=== PATIENT | male | born 1980 | race Caucasian/White ===

== ENCOUNTER 2021-04-03 17:23 | Emergency (ER) | payer OTHER ==
[2021-04-03 18:03] LABS: INR 1.06 (0.9-1.2); PROTHROMBIN TIME 13.2 SECONDS (11.8-13.4)
[2021-04-03 18:18] LABS: ALBUMIN 4.4 g/dL (3.4-5.0); BILIRUBIN - TOTAL 0.5 mg/dL (0.2-1.0); BUN/CREAT RATIO (CALC) 18.1 RATIO; CREATININE 1.16 mg/dL (0.67-1.17); GLOBULIN (CALCULATION) 3.2 g/dL; POTASSIUM 3.8 mmol/L (3.5-5.1); TOTAL PROTEIN 7.6 g/dL (6.4-8.2)
[2021-04-03 18:26] LABS: BASOPHIL 0.3 % (0-2); EOSINOPHIL 0.8 % (0-5); HCT 46.6 % (42.0-52.0); HGB 15.5 g/dl (13.2-18.0); LYMPHOCYTE 11.7 % (15-48); MCH 32.1 pg (25.0-31.0); MCHC 33.3 g/dL (32.0-36.0); MCV 96.5 fL (78.0-100.0); MONOCYTE 7.3 % (0-12); MPV 10.8 fL (6.0-9.5); NEUTROPHIL 79.4 % (41-80); NRBC 0; PLT 176 K/uL (150-400); RBC 4.83 M/uL (4.70-6.00); RDW 12.9 % (11.5-14.0); WBC 14.6 K/uL (4.0-10.5)
[2021-04-03 21:02] LABS: BILIRUBIN NEGATIVE (NEGATIVE); BLOOD NEGATIVE Ery/uL (NEGATIVE); CLARITY CLEAR (CLEAR); COLOR YELLOW (YELLOW); GLUCOSE (U) NORMAL (NORMAL); LEUKOCYTES NEGATIVE Leu/uL (NEGATIVE); NITRITE NEGATIVE (NEGATIVE); PROTEIN NEGATIVE (NEGATIVE); SPECIFIC GRAVITY 1.025 (1.001-1.030); UROBILINOGEN 0.2 mg/dL (0.2-1.0); pH 5.5 (5.0-9.0)
[2021-04-03] MEDS ORDERED: IBUPROFEN800 MG PO (21:28)
[2021-04-03] MEDS ORDERED: PERCOCET 5-3251 EACH PO (21:28)
[2021-04-03] MEDS ORDERED: CYCLOBENZAPRINE10 MG PO (21:28)
== END 2021-04-03 22:03 | disposition home or self-care (01) ==
LOC: FER 17:23
PROVIDERS: Emergency Medicine
DX: S01.511A Laceration without foreign body of lip, initial encounter (principal); S40.021A Contusion of right upper arm, initial encounter; S20.211A Contusion of right front wall of thorax, initial encounter; S00.81XA Abrasion of other part of head, initial encounter; S10.81XA Abrasion of other specified part of neck, initial encounter; S40.211A Abrasion of right shoulder, initial encounter; W20.8XXA Other cause of strike by thrown, projected or falling object, initial encounter; Y92.009 Unspecified place in unspecified non-institutional (private) residence as the place of occurrence of the external cause
CPT/HCPCS: 36415; 70450; 70486; 71260; 72125; 72128; 72131; 73060; 73090; 80053; 81003; 82550; 83605; 83690; 83735; 84484; 85025; 85610; 85730; 93005; J1170; J1885; J2405; J7030; Q9967